=== PATIENT | male | born 1940 | race Hispanic/Latino ===

== ENCOUNTER 2017-08-25 13:48 | Inpatient (IN) | payer OTHER ==
[~2017-08-25] VITALS: Ht 170.2 cm; Wt 84.5 kg
[2017-08-25 15:33] LABS: BASOPHILS % (AUTO) 0.9 % (0.0-5.0); EOSINOPHILS % (AUTO) 1.6 % (0.0-8.0); HEMATOCRIT 28.2 % (42-54); LYMPHOCYTES % (AUTO) 8.3 % (21.0-51.0); MEAN CORPUSCULAR HEMOGLOBIN 29.5 pg (27.0-33.0); MEAN CORPUSCULAR HGB CONC 33.3 g/dL (32.0-36.0); MEAN CORPUSCULAR VOLUME 88.6 fL (79-99); MONOCYTES % (AUTO) 6.8 % (3.0-13.0); NEUTROPHILS % (AUTO) 82.4 % (40.0-77.0); PLATELET COUNT (AUTO) 210 K/uL (130-400); RED BLOOD CELL COUNT(AUTO) 3.19 MIL/uL (4.50-6.20); RED CELL DISTRIBUTION WIDTH 12.9 % (11.0-15.5); WHITE BLOOD COUNT (AUTO) 12.7 K/uL (4.8-10.8)
[2017-08-25 15:59] LABS: ALBUMIN 3.4 g/dL (3.5-5.0); BILIRUBIN,DIRECT 0.1 mg/dL (0.0-0.3); BILIRUBIN,TOTAL 0.4 mg/dL (0.2-1.0); POTASSIUM 3.8 mmol/L (3.5-5.1); TOTAL PROTEIN, SERUM 7.1 g/dL (6.0-8.3)
[2017-08-25 16:10] LABS: CREATININE 10.6 mg/dL (0.5-1.5)
[2017-08-25 21:27] VITALS: BP 172/76
[2017-08-25] MEDS ORDERED: SODIUM CHLORIDE 0.9% 10 ML VIAL IVP PRN (22:15)
[2017-08-25] MEDS ORDERED: METO100T14 PO ×2 (22:20→22:21)
[2017-08-25] MEDS ORDERED: CALC667T5 PO (22:22)
[2017-08-25] MEDS ORDERED: FURO40TA7 PO (22:23)
[2017-08-25] MEDS ORDERED: NIFE60TA71 PO (22:24)
[2017-08-25] MEDS ORDERED: PANT40TA25 PO (22:26)
[2017-08-25] MEDS ORDERED: ONDA4TAB9 PO (22:27)
[2017-08-25] MEDS ORDERED: METO2.5T2 PO (22:28)
[2017-08-26] VITALS (7 sets, daily range): BP systolic 143–170; BP diastolic 74–86
[2017-08-26] MEDS ORDERED: ONDANSETRON HCL 4 MG/2 ML VIAL IVP PRN (01:15)
[2017-08-26 04:25] LABS: HEMATOCRIT 27.8 % (42-54); MEAN CORPUSCULAR HEMOGLOBIN 30.9 pg (27.0-33.0); MEAN CORPUSCULAR HGB CONC 34.7 g/dL (32.0-36.0); MEAN CORPUSCULAR VOLUME 89.1 fL (79-99); PLATELET COUNT (AUTO) 203 K/uL (130-400); RED BLOOD CELL COUNT(AUTO) 3.12 MIL/uL (4.50-6.20); RED CELL DISTRIBUTION WIDTH 12.7 % (11.0-15.5); WHITE BLOOD COUNT (AUTO) 13.8 K/uL (4.8-10.8)
[2017-08-26 04:45] LABS: POTASSIUM 3.6 mmol/L (3.5-5.1)
[2017-08-26 04:52] LABS: CREATININE 10.8 mg/dL (0.5-1.5)
[2017-08-26] MEDS: FAMOTIDINE 20MG TAB 20 MG TAB PO SCH ×2 (09:00→19:50)
[2017-08-26] MEDS ORDERED: LACTULOSE 20 GM/30 ML UDCUP PO PRN (11:45)
[2017-08-26] MEDS ORDERED: ACETAMINOPHEN 325 MG TAB PO PRN (11:45)
[2017-08-27] VITALS (8 sets, daily range): BP systolic 127–173; BP diastolic 60–93
[2017-08-27 06:25] LABS: HEMATOCRIT 28.1 % (42-54); MEAN CORPUSCULAR HEMOGLOBIN 30.2 pg (27.0-33.0); MEAN CORPUSCULAR HGB CONC 34.3 g/dL (32.0-36.0); MEAN CORPUSCULAR VOLUME 88.1 fL (79-99); PLATELET COUNT (AUTO) 213 K/uL (130-400); RED BLOOD CELL COUNT(AUTO) 3.19 MIL/uL (4.50-6.20); WHITE BLOOD COUNT (AUTO) 11.3 K/uL (4.8-10.8)
[2017-08-27 06:38] LABS: POTASSIUM 3.4 mmol/L (3.5-5.1)
[2017-08-27 06:42] LABS: CREATININE 10.4 mg/dL (0.5-1.5)
[2017-08-27] MEDS: FAMOTIDINE 20MG TAB 20 MG TAB PO SCH ×2 (10:01→20:19)
[2017-08-27 12:09] LABS: HEPATITIS Bs ANTIGEN SCREEN P Negative (Negative)
[2017-08-27] MEDS: METOPROLOL TARTRATE 50 MG TAB PO SCH (16:29)
[2017-08-27] MEDS: CALCIUM ACETATE 667 MG CAPSULE PO SCH (20:19)
[2017-08-27] MEDS: ONDANSETRON 4 MG TABLET PO SCH (20:19)
[2017-08-28] VITALS (11 sets, daily range): BP systolic 138–162; BP diastolic 72–103
[2017-08-28 06:53] LABS: HEMATOCRIT 29.1 % (42-54); MEAN CORPUSCULAR HEMOGLOBIN 29.9 pg (27.0-33.0); MEAN CORPUSCULAR HGB CONC 33.8 g/dL (32.0-36.0); MEAN CORPUSCULAR VOLUME 88.5 fL (79-99); PLATELET COUNT (AUTO) 209 K/uL (130-400); RED BLOOD CELL COUNT(AUTO) 3.29 MIL/uL (4.50-6.20); RED CELL DISTRIBUTION WIDTH 12.7 % (11.0-15.5); WHITE BLOOD COUNT (AUTO) 11.4 K/uL (4.8-10.8)
[2017-08-28 07:10] LABS: POTASSIUM 3.3 mmol/L (3.5-5.1)
[2017-08-28 07:19] LABS: CREATININE 10.3 mg/dL (0.5-1.5)
[2017-08-28 08:33] LABS: INR 1.01 (0.85-1.15); PARTIAL THROMBOPLASTIN TIME 26.9 SEC (26.3-35.5); PROTHROMBIN TIME 10.6 SEC (9.6-11.6)
[2017-08-28] MEDS: METOPROLOL TARTRATE 50 MG TAB PO SCH ×3 (09:00→23:09)
[2017-08-28] MEDS: CALCIUM ACETATE 667 MG CAPSULE PO SCH ×3 (09:00→23:08)
[2017-08-28] MEDS: FAMOTIDINE 20MG TAB 20 MG TAB PO SCH ×2 (09:00→23:08)
[2017-08-28] MEDS: NIFEDIPINE ER 30 MG TAB PO SCH (09:00)
[2017-08-28] MEDS: FUROSEMIDE 40 MG TABLET PO SCH (09:00)
[2017-08-28] MEDS: ONDANSETRON 4 MG TABLET PO SCH ×3 (09:00→23:08)
[2017-08-28] MEDS: PANTOPRAZOLE SODIUM 40 MG TABLET.DR PO SCH (09:00)
[2017-08-28] MEDS: METOLAZONE 2.5 MG TABLET PO SCH (09:00)
[2017-08-28] MEDS ORDERED: SODIUM BICARB 50MEQ 50ML VIAL ONE (12:35)
[2017-08-28] MEDS ORDERED: LIDOCAINE HCL 2% 20ML ONE (12:35)
[2017-08-28] MEDS ORDERED: HEPARIN SODIUM 1000UNIT/ML 10ML VIAL ONE (12:36)
[2017-08-28] MEDS ORDERED: ADENOSINE 3 MG/ML 2ML VIAL IV ONE (13:38)
[2017-08-28 14:57] LABS: HEMATOCRIT 30.7 % (42-54)
[2017-08-28 15:12] LABS: HEMOGLOBIN A1C 5.9 % (4.0-6.0)
[2017-08-28 15:25] LABS: ALBUMIN 3.6 g/dL (3.5-5.0)
[2017-08-28 15:33] LABS: CREATININE 10.6 mg/dL (0.5-1.5)
[2017-08-28 15:42] LABS: % IRON SATURATION 21.8 % (30-44)
[2017-08-28] MEDS ORDERED: ALBUMIN (HUMAN) 25% 100 ML IV PRN (20:15)
[2017-08-28] MEDS ORDERED: 0.9% SODIUM CHLORIDE 250 ML IV BAG IV PRN (20:15)
[2017-08-28] MEDS: HEPARIN SODIUM 5000UNIT/ML 1ML VIAL IJ PRN (20:51)
[2017-08-28] MEDS: SODIUM CHLORIDE 0.9% 1000ML 1,000 ML IV PRN (20:51)
[2017-08-29] VITALS (7 sets, daily range): BP systolic 102–134; BP diastolic 58–86
[2017-08-29 00:03] LABS: CREATINE KINASE MB 2.3 ng/mL (0.5-3.6); TROPONIN I 0.06 ng/mL (0.00-0.06)
[2017-08-29 05:10] LABS: HEMATOCRIT 29.8 % (42-54); MEAN CORPUSCULAR HEMOGLOBIN 29.9 pg (27.0-33.0); MEAN CORPUSCULAR HGB CONC 33.9 g/dL (32.0-36.0); MEAN CORPUSCULAR VOLUME 88.4 fL (79-99); PLATELET COUNT (AUTO) 207 K/uL (130-400); RED BLOOD CELL COUNT(AUTO) 3.38 MIL/uL (4.50-6.20); RED CELL DISTRIBUTION WIDTH 12.8 % (11.0-15.5); WHITE BLOOD COUNT (AUTO) 14.2 K/uL (4.8-10.8)
[2017-08-29 05:44] LABS: CREATINE KINASE MB 2.2 ng/mL (0.5-3.6); POTASSIUM 3.6 mmol/L (3.5-5.1); THYROID STIMULATING HORMONE 1.48 uIU/mL (0.36-3.74); TROPONIN I 0.08 ng/mL (0.00-0.06)
[2017-08-29 05:48] LABS: CREATININE 8.5 mg/dL (0.5-1.5)
[2017-08-29] MEDS ORDERED: CEFTRIAXONE 1GM/D5W 50ML 50 ML IV SCH (08:30)
[2017-08-29] MEDS: HEPARIN SODIUM 5000UNIT/ML 1ML VIAL IJ PRN (13:02)
[2017-08-29] MEDS: PANTOPRAZOLE SODIUM 40 MG TABLET.DR PO SCH (13:04)
[2017-08-29] MEDS: NIFEDIPINE ER 30 MG TAB PO SCH (13:04)
[2017-08-29] MEDS: METOPROLOL TARTRATE 50 MG TAB PO SCH ×2 (13:05→16:35)
[2017-08-29] MEDS: FAMOTIDINE 20MG TAB 20 MG TAB PO SCH ×2 (13:05→21:27)
[2017-08-29] MEDS: FUROSEMIDE 40 MG TABLET PO SCH (13:06)
[2017-08-29] MEDS: CALCIUM ACETATE 667 MG CAPSULE PO SCH ×3 (13:06→21:27)
[2017-08-29] MEDS: CEFTRIAXONE SODIUM 1 GM IVP SCH (13:06)
[2017-08-29] MEDS: METOLAZONE 2.5 MG TABLET PO SCH (13:07)
[2017-08-29] MEDS: ONDANSETRON 4 MG TABLET PO SCH ×3 (13:07→21:27)
[2017-08-29 14:15] LABS: CREATINE KINASE MB 2.1 ng/mL (0.5-3.6); TROPONIN I 0.13 ng/mL (0.00-0.06)
[2017-08-30 04:00] VITALS: BP 121/66
[2017-08-30 06:10] LABS: ALBUMIN 3.1 g/dL (3.5-5.0); CREATININE 7.4 mg/dL (0.5-1.5); PHOSPHORUS 5.9 mg/dL (2.5-4.9); POTASSIUM 3.2 mmol/L (3.5-5.1)
[2017-08-30 08:00] VITALS: BP 114/70
[2017-08-30] MEDS ORDERED: APIXABAN 2.5 MG TABLET PO SCH (09:00)
[2017-08-30] MEDS: FAMOTIDINE 20MG TAB 20 MG TAB PO SCH ×2 (10:12→22:47)
[2017-08-30] MEDS: PANTOPRAZOLE SODIUM 40 MG TABLET.DR PO SCH (10:12)
[2017-08-30] MEDS: ONDANSETRON 4 MG TABLET PO SCH ×3 (10:12→22:47)
[2017-08-30] MEDS: CALCIUM ACETATE 667 MG CAPSULE PO SCH ×3 (10:13→22:48)
[2017-08-30] MEDS: FUROSEMIDE 40 MG TABLET PO SCH (10:13)
[2017-08-30] MEDS: METOLAZONE 2.5 MG TABLET PO SCH (10:14)
[2017-08-30] MEDS: METOPROLOL TARTRATE 50 MG TAB PO SCH ×2 (10:17→16:44)
[2017-08-30] MEDS: NIFEDIPINE ER 30 MG TAB PO SCH (10:17)
[2017-08-30] MEDS: CEFTRIAXONE SODIUM 1 GM IVP SCH (10:18)
[2017-08-30 11:43] VITALS: BP 128/63
[2017-08-30 16:00] VITALS: BP 120/65
[2017-08-30 20:00] VITALS: BP 111/71
[2017-08-30] MEDS: APIXABAN 5 MG TABLET PO SCH (22:47)
[2017-08-30 23:38] VITALS: BP 119/66
[2017-08-31] VITALS (13 sets, daily range): BP systolic 76–132; BP diastolic 43–81
[2017-08-31 04:49] LABS: HEMATOCRIT 28.9 % (42-54); MEAN CORPUSCULAR HGB CONC 33.5 g/dL (32.0-36.0); MEAN CORPUSCULAR VOLUME 89.4 fL (79-99); PLATELET COUNT (AUTO) 184 K/uL (130-400); RED BLOOD CELL COUNT(AUTO) 3.23 MIL/uL (4.50-6.20); RED CELL DISTRIBUTION WIDTH 12.7 % (11.0-15.5); WHITE BLOOD COUNT (AUTO) 13.6 K/uL (4.8-10.8)
[2017-08-31 05:05] LABS: POTASSIUM 3.2 mmol/L (3.5-5.1)
[2017-08-31 05:07] LABS: CREATININE 9.2 mg/dL (0.5-1.5)
[2017-08-31] MEDS: CALCIUM ACETATE 667 MG CAPSULE PO SCH ×3 (08:03→16:37)
[2017-08-31] MEDS: METOLAZONE 2.5 MG TABLET PO SCH (08:03)
[2017-08-31] MEDS: ONDANSETRON 4 MG TABLET PO SCH ×3 (08:04→21:41)
[2017-08-31] MEDS: FAMOTIDINE 20MG TAB 20 MG TAB PO SCH ×2 (08:04→21:41)
[2017-08-31] MEDS: APIXABAN 5 MG TABLET PO SCH ×2 (08:04→21:41)
[2017-08-31] MEDS: FUROSEMIDE 40 MG TABLET PO SCH (08:04)
[2017-08-31] MEDS: PANTOPRAZOLE SODIUM 40 MG TABLET.DR PO SCH (08:04)
[2017-08-31] MEDS: CEFTRIAXONE SODIUM 1 GM IVP SCH (08:06)
[2017-08-31] MEDS: NIFEDIPINE ER 30 MG TAB PO SCH (09:00)
[2017-08-31] MEDS: METOPROLOL TARTRATE 50 MG TAB PO SCH ×2 (09:00→16:32)
[2017-08-31] MEDS: HEPARIN SODIUM 5000UNIT/ML 1ML VIAL IJ PRN (15:47)
[2017-09-01 04:00] VITALS: BP 100/56
[2017-09-01 04:31] LABS: HEMATOCRIT 29.3 % (42-54); MEAN CORPUSCULAR HGB CONC 33.6 g/dL (32.0-36.0); MEAN CORPUSCULAR VOLUME 89.1 fL (79-99); PLATELET COUNT (AUTO) 179 K/uL (130-400); RED BLOOD CELL COUNT(AUTO) 3.29 MIL/uL (4.50-6.20); RED CELL DISTRIBUTION WIDTH 12.7 % (11.0-15.5); WHITE BLOOD COUNT (AUTO) 15.6 K/uL (4.8-10.8)
[2017-09-01 04:53] LABS: CREATININE 7.4 mg/dL (0.5-1.5); POTASSIUM 3.5 mmol/L (3.5-5.1)
[2017-09-01 07:00] VITALS: BP 119/71
[2017-09-01] MEDS ORDERED: CEFEPIME 1GM+NS 50ML 50 ML IV SCH (09:00)
[2017-09-01] MEDS ORDERED: WATER FOR INJECTION,STERILE 5 ML VIAL ONE ×2 (09:28→11:59)
[2017-09-01] MEDS: CEFTRIAXONE SODIUM 1 GM IVP SCH (09:38)
[2017-09-01] MEDS: METOLAZONE 2.5 MG TABLET PO SCH (09:39)
[2017-09-01] MEDS: ONDANSETRON 4 MG TABLET PO SCH ×3 (09:39→20:47)
[2017-09-01] MEDS: PANTOPRAZOLE SODIUM 40 MG TABLET.DR PO SCH (09:39)
[2017-09-01] MEDS: FUROSEMIDE 40 MG TABLET PO SCH (09:39)
[2017-09-01] MEDS: FAMOTIDINE 20MG TAB 20 MG TAB PO SCH ×2 (09:39→20:47)
[2017-09-01] MEDS: APIXABAN 5 MG TABLET PO SCH ×2 (09:40→20:47)
[2017-09-01] MEDS: NIFEDIPINE ER 30 MG TAB PO SCH (09:40)
[2017-09-01] MEDS: CALCIUM ACETATE 667 MG CAPSULE PO SCH ×3 (09:40→16:32)
[2017-09-01] MEDS: METOPROLOL TARTRATE 50 MG TAB PO SCH ×2 (09:40→16:40)
[2017-09-01] MEDS ORDERED: COMPOUND IV REFRIGERATED 1 EACH IVSOLN MISC PRN (10:00)
[2017-09-01] MEDS ORDERED: VANCOMYCIN PROTOCOL PER PHARMACY IV SCH (10:00)
[2017-09-01] MEDS ORDERED: VANCOMYCIN 1.25 GM in SODIUM CHLORIDE 0.9% 250 ML IV SCH (10:00)
[2017-09-01 11:00] VITALS: BP 123/74
[2017-09-01] MEDS: CEFEPIME HCL 1 GM VIAL IVP SCH (12:17)
[2017-09-01 16:01] VITALS: BP 121/68
[2017-09-01 20:00] VITALS: BP 124/66
[2017-09-02] VITALS: BP 121/69
[2017-09-02 04:00] VITALS: BP 108/62
[2017-09-02 04:15] LABS: HEMATOCRIT 27.3 % (42-54); MEAN CORPUSCULAR HGB CONC 33.8 g/dL (32.0-36.0); MEAN CORPUSCULAR VOLUME 88.8 fL (79-99); PLATELET COUNT (AUTO) 174 K/uL (130-400); RED BLOOD CELL COUNT(AUTO) 3.08 MIL/uL (4.50-6.20); RED CELL DISTRIBUTION WIDTH 12.6 % (11.0-15.5); WHITE BLOOD COUNT (AUTO) 14.1 K/uL (4.8-10.8)
[2017-09-02 04:33] LABS: ALBUMIN 2.8 g/dL (3.5-5.0); BILIRUBIN,TOTAL 0.3 mg/dL (0.2-1.0); POTASSIUM 3.4 mmol/L (3.5-5.1); TOTAL PROTEIN, SERUM 6.2 g/dL (6.0-8.3)
[2017-09-02 05:06] LABS: CREATININE 9.5 mg/dL (0.5-1.5)
[2017-09-02 07:00] VITALS: BP 129/77
[2017-09-02] MEDS: SODIUM CHLORIDE 0.9% 1000ML 1,000 ML IV PRN (08:41)
[2017-09-02] MEDS: HEPARIN SODIUM 5000UNIT/ML 1ML VIAL IJ PRN (08:42)
[2017-09-02] MEDS: APIXABAN 5 MG TABLET PO SCH ×2 (10:47→20:29)
[2017-09-02] MEDS: METOLAZONE 2.5 MG TABLET PO SCH (10:47)
[2017-09-02] MEDS: METOPROLOL TARTRATE 50 MG TAB PO SCH ×2 (10:48→17:28)
[2017-09-02] MEDS: FUROSEMIDE 40 MG TABLET PO SCH (10:49)
[2017-09-02] MEDS: CALCIUM ACETATE 667 MG CAPSULE PO SCH ×3 (10:50→17:28)
[2017-09-02] MEDS: FAMOTIDINE 20MG TAB 20 MG TAB PO SCH ×2 (10:50→20:29)
[2017-09-02] MEDS: PANTOPRAZOLE SODIUM 40 MG TABLET.DR PO SCH (10:50)
[2017-09-02] MEDS: NIFEDIPINE ER 30 MG TAB PO SCH (10:50)
[2017-09-02] MEDS: ONDANSETRON 4 MG TABLET PO SCH ×3 (10:50→20:29)
[2017-09-02] MEDS ORDERED: WATER FOR INJECTION,STERILE 20 ML VIAL ONE (10:56)
[2017-09-02 11:00] VITALS: BP 127/69
[2017-09-02] MEDS: CEFEPIME HCL 1 GM VIAL IVP SCH (11:18)
[2017-09-02 16:00] VITALS: BP 100/62
[2017-09-02 20:00] VITALS: BP 104/62
[2017-09-03] VITALS (7 sets, daily range): BP systolic 106–127; BP diastolic 63–74
[2017-09-03] MEDS: CALCIUM ACETATE 667 MG CAPSULE PO SCH ×3 (06:55→18:18)
[2017-09-03] MEDS ORDERED: WATER FOR INJECTION,STERILE 20 ML VIAL ONE (10:23)
[2017-09-03] MEDS: NIFEDIPINE ER 30 MG TAB PO SCH (10:27)
[2017-09-03] MEDS: APIXABAN 5 MG TABLET PO SCH ×2 (10:28→21:40)
[2017-09-03] MEDS: FUROSEMIDE 40 MG TABLET PO SCH (10:29)
[2017-09-03] MEDS: METOLAZONE 2.5 MG TABLET PO SCH (10:29)
[2017-09-03] MEDS: FAMOTIDINE 20MG TAB 20 MG TAB PO SCH ×2 (10:29→21:40)
[2017-09-03] MEDS: METOPROLOL TARTRATE 50 MG TAB PO SCH ×2 (10:29→18:17)
[2017-09-03] MEDS: PANTOPRAZOLE SODIUM 40 MG TABLET.DR PO SCH (10:29)
[2017-09-03] MEDS: DOCUSATE SODIUM 100 MG CAP PO PRN ×2 (10:30→21:40)
[2017-09-03] MEDS: ONDANSETRON 4 MG TABLET PO SCH ×3 (10:30→21:40)
[2017-09-03] MEDS: CEFEPIME HCL 1 GM VIAL IVP SCH (10:30)
[2017-09-04] VITALS (11 sets, daily range): BP systolic 93–126; BP diastolic 57–74
[2017-09-04 05:05] LABS: HEMATOCRIT 28.4 % (42-54); MEAN CORPUSCULAR HEMOGLOBIN 30.1 pg (27.0-33.0); MEAN CORPUSCULAR HGB CONC 33.6 g/dL (32.0-36.0); MEAN CORPUSCULAR VOLUME 89.4 fL (79-99); PLATELET COUNT (AUTO) 179 K/uL (130-400); RED BLOOD CELL COUNT(AUTO) 3.18 MIL/uL (4.50-6.20); RED CELL DISTRIBUTION WIDTH 12.7 % (11.0-15.5); WHITE BLOOD COUNT (AUTO) 17.1 K/uL (4.8-10.8)
[2017-09-04 05:17] LABS: ALBUMIN 2.9 g/dL (3.5-5.0); BILIRUBIN,TOTAL 0.4 mg/dL (0.2-1.0); POTASSIUM 3.5 mmol/L (3.5-5.1); TOTAL PROTEIN, SERUM 6.4 g/dL (6.0-8.3)
[2017-09-04 05:20] LABS: CREATININE 9.4 mg/dL (0.5-1.5)
[2017-09-04] MEDS: CALCIUM ACETATE 667 MG CAPSULE PO SCH ×3 (07:25→18:04)
[2017-09-04] MEDS: FAMOTIDINE 20MG TAB 20 MG TAB PO SCH ×2 (08:38→20:47)
[2017-09-04] MEDS: METOLAZONE 2.5 MG TABLET PO SCH (08:38)
[2017-09-04] MEDS: APIXABAN 5 MG TABLET PO SCH ×2 (08:38→20:47)
[2017-09-04] MEDS: FUROSEMIDE 40 MG TABLET PO SCH (08:38)
[2017-09-04] MEDS: METOPROLOL TARTRATE 50 MG TAB PO SCH ×2 (08:39→18:04)
[2017-09-04] MEDS: PANTOPRAZOLE SODIUM 40 MG TABLET.DR PO SCH (08:39)
[2017-09-04] MEDS: NIFEDIPINE ER 30 MG TAB PO SCH (08:39)
[2017-09-04] MEDS: ONDANSETRON 4 MG TABLET PO SCH ×3 (08:39→20:47)
[2017-09-04] MEDS ORDERED: WATER FOR INJECTION,STERILE 20 ML VIAL ONE (11:14)
[2017-09-04] MEDS: CEFEPIME HCL 1 GM VIAL IVP SCH (11:32)
[2017-09-05] VITALS (7 sets, daily range): BP systolic 77–124; BP diastolic 46–66
[2017-09-05 05:29] LABS: HEMATOCRIT 26.9 % (42-54); MEAN CORPUSCULAR HEMOGLOBIN 31.6 pg (27.0-33.0); MEAN CORPUSCULAR HGB CONC 35.5 g/dL (32.0-36.0); MEAN CORPUSCULAR VOLUME 88.9 fL (79-99); PLATELET COUNT (AUTO) 174 K/uL (130-400); RED BLOOD CELL COUNT(AUTO) 3.03 MIL/uL (4.50-6.20); RED CELL DISTRIBUTION WIDTH 12.8 % (11.0-15.5); WHITE BLOOD COUNT (AUTO) 13.2 K/uL (4.8-10.8)
[2017-09-05 05:37] LABS: BAND NEUTROPHILS % (MANUAL) 2 % (0-2); BASOPHILS % (MANUAL) 2 % (0-2); EOSINOPHILS % (MANUAL) 6 % (1-6); LYMPHOCYTES % (MANUAL) 11 % (22-44); MAN.DIFF COMMENT-IMPRESSION MANUAL DIFFERENTIAL; MONOCYTES % (MANUAL) 8 % (2-9); PLATELET MORPHOLOGY COMMENT ADEQUATE; SEGMENTED NEUTROPHILS % 71 % (40-70)
[2017-09-05] MEDS: NIFEDIPINE ER 30 MG TAB PO SCH (08:07)
[2017-09-05] MEDS: METOPROLOL TARTRATE 50 MG TAB PO SCH ×2 (08:08→17:00)
[2017-09-05] MEDS: CALCIUM ACETATE 667 MG CAPSULE PO SCH ×3 (08:14→17:00)
[2017-09-05] MEDS: HEPARIN SODIUM 5000UNIT/ML 1ML VIAL IJ PRN (15:54)
[2017-09-05] MEDS: CEFEPIME HCL 1 GM VIAL IVP SCH (18:19)
[2017-09-05] MEDS: FAMOTIDINE 20MG TAB 20 MG TAB PO SCH ×2 (18:20→20:53)
[2017-09-05] MEDS: METOLAZONE 2.5 MG TABLET PO SCH (18:20)
[2017-09-05] MEDS: ONDANSETRON 4 MG TABLET PO SCH ×2 (18:20→21:00)
[2017-09-05] MEDS: PANTOPRAZOLE SODIUM 40 MG TABLET.DR PO SCH (18:20)
[2017-09-05] MEDS: FUROSEMIDE 40 MG TABLET PO SCH (18:20)
[2017-09-05] MEDS: APIXABAN 5 MG TABLET PO SCH ×2 (18:20→21:00)
[2017-09-06 04:17] VITALS: BP 115/52
[2017-09-06 07:00] VITALS: BP_SYST 103; BP_SYST 74; BP_SYST 94; BP_DIAS 49; BP_DIAS 56; BP_DIAS 66
[2017-09-06] MEDS ORDERED: FUROSEMIDE 40 MG TABLET PO SCH (09:00)
[2017-09-06] MEDS: CALCIUM ACETATE 667 MG CAPSULE PO SCH ×2 (09:17→12:05)
[2017-09-06] MEDS: APIXABAN 5 MG TABLET PO SCH (09:18)
[2017-09-06] MEDS: FAMOTIDINE 20MG TAB 20 MG TAB PO SCH (09:18)
[2017-09-06] MEDS: ONDANSETRON 4 MG TABLET PO SCH ×2 (09:18→14:02)
[2017-09-06] MEDS: PANTOPRAZOLE SODIUM 40 MG TABLET.DR PO SCH (09:18)
[2017-09-06] MEDS: METOPROLOL TARTRATE 50 MG TAB PO SCH (09:18)
[2017-09-06 10:54] LABS: HEMATOCRIT 28.6 % (42-54); MEAN CORPUSCULAR HEMOGLOBIN 30.7 pg (27.0-33.0); MEAN CORPUSCULAR HGB CONC 34.1 g/dL (32.0-36.0); MEAN CORPUSCULAR VOLUME 89.9 fL (79-99); PLATELET COUNT (AUTO) 195 K/uL (130-400); RED BLOOD CELL COUNT(AUTO) 3.18 MIL/uL (4.50-6.20); WHITE BLOOD COUNT (AUTO) 11.9 K/uL (4.8-10.8)
[2017-09-06] MEDS: CEFEPIME HCL 1 GM VIAL IVP SCH (14:03)
[2017-12-06] MEDS ORDERED: MIDO10TA PO (10:18)
[2017-12-06] MEDS ORDERED: DRON400T2 PO (10:18)
[2017-12-06] MEDS ORDERED: FLUT50DI2 IH (10:18)
== END 2017-09-06 18:15 | DRG 871 ==
LOC: EDH 13:48 → OBSVTOIN 13:49 → EDHIP 13:49 → 3DH 21:32
PROVIDERS: ADMIT Internal Medicine; ATTEND Internal Medicine
PROC: 02H633Z Insertion of Infusion Device into Right Atrium, Percutaneous Approach (ICD-10-PCS; principal; 2017-08-28)
PROC: 5A1D70Z Performance of Urinary Filtration, Intermittent, Less than 6 Hours Per Day (ICD-10-PCS; 2017-08-28)
PROC: 5A1D70Z Performance of Urinary Filtration, Intermittent, Less than 6 Hours Per Day (ICD-10-PCS; 2017-08-29)
PROC: 5A1D70Z Performance of Urinary Filtration, Intermittent, Less than 6 Hours Per Day (ICD-10-PCS; 2017-09-02)
PROC: 5A1D70Z Performance of Urinary Filtration, Intermittent, Less than 6 Hours Per Day (ICD-10-PCS; 2017-09-05)
DX: A41.9 Sepsis, unspecified organism (principal); N18.6 End stage renal disease; E11.22 Type 2 diabetes mellitus with diabetic chronic kidney disease; E87.70 Fluid overload, unspecified; I12.0 Hypertensive chronic kidney disease with stage 5 chronic kidney disease or end stage renal disease; I48.91 Unspecified atrial fibrillation; I47.1 Supraventricular tachycardia; I27.20 Pulmonary hypertension, unspecified; Z99.2 Dependence on renal dialysis; M10.9 Gout, unspecified; E66.9 Obesity, unspecified; D63.1 Anemia in chronic kidney disease; E78.5 Hyperlipidemia, unspecified; I95.1 Orthostatic hypotension; J32.3 Chronic sphenoidal sinusitis; Z72.0 Tobacco use; Z79.01 Long term (current) use of anticoagulants; Z87.441 Personal history of nephrotic syndrome; Z68.29 Body mass index [BMI] 29.0-29.9, adult
CPT/HCPCS: 36415; 36558; 70450; 71045; 71046; 77001; 80048; 80053; 80061; 80069; 80076; 82040; 82550; 82553; 82565; 82607; 82728; 82746; 82948; 83036; 83540; 83550; 83874; 84443; 84484; 84520; 85025; 85027; 85610; 85730; 86701; 86704; 86706; 86708; 87040; 87088; 87340; 87390; 87520; 88313; 90935; 93005; 93306; A4218; C1750; J0153; J0692; J0696; J1644; J2405; J3370; J3490; J7030; Q0162

== ENCOUNTER 2017-09-16 11:08 | Inpatient (IN) | payer OTHER ==
[~2017-09-16] VITALS: Ht 170.2 cm; Wt 84.1 kg
[~2017-09-16 11:08] MED LIST: CALC667T5 PO; FURO40TA7 PO; METO100T14 PO; METO2.5T2 PO; NIFE60TA71 PO; ONDA4TAB9 PO; PANT40TA25 PO
[2017-09-16 11:28] LABS: EOSINOPHILS % (AUTO) 4.1 % (0.0-8.0); HEMATOCRIT 31.7 % (42-54); LYMPHOCYTES % (AUTO) 15.6 % (21.0-51.0); MEAN CORPUSCULAR HEMOGLOBIN 30.9 pg (27.0-33.0); MEAN CORPUSCULAR HGB CONC 34.2 g/dL (32.0-36.0); MEAN CORPUSCULAR VOLUME 90.5 fL (79-99); MONOCYTES % (AUTO) 12.5 % (3.0-13.0); NEUTROPHILS % (AUTO) 66.8 % (40.0-77.0); PLATELET COUNT (AUTO) 213 K/uL (130-400); RED CELL DISTRIBUTION WIDTH 13.6 % (11.0-15.5); WHITE BLOOD COUNT (AUTO) 11.9 K/uL (4.8-10.8)
[2017-09-16 11:38] LABS: POTASSIUM 4.4 mmol/L (3.5-5.1)
[2017-09-16 11:41] LABS: CREATININE 6.7 mg/dL (0.5-1.5)
[2017-09-16 11:53] LABS: ALBUMIN 3.2 g/dL (3.5-5.0); BILIRUBIN,TOTAL 0.4 mg/dL (0.2-1.0); CREATINE KINASE MB 2.9 ng/mL (0.5-3.6); TOTAL PROTEIN, SERUM 7.3 g/dL (6.0-8.3)
[2017-09-16] MEDS ORDERED: SODIUM CHLORIDE 0.9% 1000ML 1,000 ML IV ONE (15:24)
[2017-09-16] MEDS ORDERED: ONDANSETRON ODT 4 MG TAB PO PRN (18:15)
[2017-09-16 18:41] LABS: CREATINE KINASE MB 2.9 ng/mL (0.5-3.6); TROPONIN I 0.1 ng/mL (0.00-0.06)
[2017-09-16 19:15] VITALS: BP 140/67
[2017-09-16] MEDS ORDERED: FAMOTIDINE 20MG TAB 20 MG TAB PO SCH (21:00)
[2017-09-16] MEDS: METOPROLOL TARTRATE 50 MG TAB PO SCH (21:00)
[2017-09-16] MEDS: APIXABAN 5 MG TABLET PO SCH (21:00)
[2017-09-16] MEDS ORDERED: FUROSEMIDE 40 MG TABLET PO SCH (21:00)
[2017-09-16 21:15] VITALS: BP 140/67
[2017-09-16] MEDS ORDERED: PHARMACY COMMUNICATION MISC SCH (22:30)
[2017-09-17] VITALS (7 sets, daily range): BP systolic 103–151; BP diastolic 50–78
[2017-09-17 00:53] LABS: TROPONIN I 0.12 ng/mL (0.00-0.06)
[2017-09-17] MEDS ORDERED: METOPROLOL TARTRATE 50 MG TAB PO SCH (09:00)
[2017-09-17] MEDS ORDERED: FUROSEMIDE 20 MG TABLET PO SCH ×2 (09:00)
[2017-09-17] MEDS: CALCIUM ACETATE 667 MG CAPSULE PO SCH ×3 (09:09→16:18)
[2017-09-17] MEDS: PANTOPRAZOLE SODIUM 40 MG TABLET.DR PO SCH (09:10)
[2017-09-17] MEDS: APIXABAN 5 MG TABLET PO SCH ×2 (09:10→20:13)
[2017-09-17] MEDS: METOPROLOL TARTRATE 50 MG TAB PO SCH (20:13)
[2017-09-18] VITALS (7 sets, daily range): BP systolic 105–139; BP diastolic 59–76
[2017-09-18 05:40] LABS: HEMATOCRIT 26.1 % (42-54); MEAN CORPUSCULAR HEMOGLOBIN 31.6 pg (27.0-33.0); MEAN CORPUSCULAR HGB CONC 35.1 g/dL (32.0-36.0); PLATELET COUNT (AUTO) 185 K/uL (130-400); RED CELL DISTRIBUTION WIDTH 13.2 % (11.0-15.5); WHITE BLOOD COUNT (AUTO) 8.8 K/uL (4.8-10.8)
[2017-09-18 05:59] LABS: CREATININE 10.8 mg/dL (0.5-1.5)
[2017-09-18] MEDS: CALCIUM ACETATE 667 MG CAPSULE PO SCH ×3 (08:28→16:53)
[2017-09-18] MEDS: APIXABAN 5 MG TABLET PO SCH ×2 (08:28→19:32)
[2017-09-18] MEDS: PANTOPRAZOLE SODIUM 40 MG TABLET.DR PO SCH (08:28)
[2017-09-18] MEDS: METOPROLOL TARTRATE 50 MG TAB PO SCH ×2 (08:29→19:32)
[2017-09-18] MEDS ORDERED: SODIUM CHLORIDE 0.9% 1000ML 1,000 ML IV ONE (11:22)
[2017-09-18] MEDS ORDERED: HEPARIN SODIUM 5000UNIT/ML 1ML VIAL ONE (11:22)
[2017-09-18] MEDS ORDERED: SODIUM CHLORIDE 0.9% 1000ML 1,000 ML IV PRN (12:45)
[2017-09-18] MEDS ORDERED: ALBUMIN (HUMAN) 25% 100 ML IV PRN (12:45)
[2017-09-18] MEDS ORDERED: HEPARIN SODIUM 5000UNIT/ML 1ML VIAL IJ PRN ×2 (12:45)
[2017-09-18] MEDS ORDERED: 0.9% SODIUM CHLORIDE 250 ML IV BAG IV PRN (12:45)
[2017-09-18] MEDS ORDERED: EPOETIN ALFA 2,000 UNIT/ML VIAL SQ NR (12:45)
[2017-09-19 04:00] VITALS: BP 119/65
[2017-09-19 05:43] LABS: HEMATOCRIT 30.5 % (42-54); MEAN CORPUSCULAR HEMOGLOBIN 31.7 pg (27.0-33.0); MEAN CORPUSCULAR VOLUME 90.5 fL (79-99); PLATELET COUNT (AUTO) 226 K/uL (130-400); RED BLOOD CELL COUNT(AUTO) 3.37 MIL/uL (4.50-6.20); RED CELL DISTRIBUTION WIDTH 13.6 % (11.0-15.5); WHITE BLOOD COUNT (AUTO) 9.9 K/uL (4.8-10.8)
[2017-09-19 05:59] LABS: POTASSIUM 4.1 mmol/L (3.5-5.1)
[2017-09-19 06:07] LABS: CREATININE 8.2 mg/dL (0.5-1.5)
[2017-09-19] MEDS: APIXABAN 5 MG TABLET PO SCH (08:04)
[2017-09-19] MEDS: METOPROLOL TARTRATE 50 MG TAB PO SCH (08:04)
[2017-09-19] MEDS: PANTOPRAZOLE SODIUM 40 MG TABLET.DR PO SCH (08:04)
[2017-09-19] MEDS: CALCIUM ACETATE 667 MG CAPSULE PO SCH ×2 (08:04→12:04)
[2017-09-19 08:25] VITALS: BP 119/67
[2017-09-19 12:26] VITALS: BP 110/56
[2017-09-19 16:36] VITALS: BP 119/68
[2017-12-06] MEDS ORDERED: FLUT50DI2 IH (10:18)
[2017-12-06] MEDS ORDERED: DRON400T2 PO (10:18)
[2017-12-06] MEDS ORDERED: MIDO10TA PO (10:18)
== END 2017-09-19 18:48 | disposition home or self-care (01) | DRG 308 ==
LOC: EDH 11:08 → EDHIP 16:20 → 4AH 21:15
PROVIDERS: ADMIT Internal Medicine; ATTEND Internal Medicine
PROC: 5A1D70Z Performance of Urinary Filtration, Intermittent, Less than 6 Hours Per Day (ICD-10-PCS; principal; 2017-09-18)
DX: I49.8 Other specified cardiac arrhythmias (principal); N18.6 End stage renal disease; E11.22 Type 2 diabetes mellitus with diabetic chronic kidney disease; I12.0 Hypertensive chronic kidney disease with stage 5 chronic kidney disease or end stage renal disease; R55 Syncope and collapse; I48.92 Unspecified atrial flutter; I48.91 Unspecified atrial fibrillation; I47.1 Supraventricular tachycardia; D63.1 Anemia in chronic kidney disease; E78.5 Hyperlipidemia, unspecified; D72.829 Elevated white blood cell count, unspecified; I25.2 Old myocardial infarction; M10.9 Gout, unspecified; Z86.73 Personal history of transient ischemic attack (TIA), and cerebral infarction without residual deficits; Z87.441 Personal history of nephrotic syndrome; Z99.2 Dependence on renal dialysis
CPT/HCPCS: 36415; 70450; 71046; 80048; 80053; 82550; 82553; 83874; 84484; 85025; 85027; 90935; 93005; 93306; J0885; J1644; J7030

== ENCOUNTER 2017-12-07 08:57 | Day surgery (SDC) | payer OTHER ==
[~2017-12-07] VITALS: Ht 170.2 cm; Wt 80.4 kg
[~2017-12-07 08:57] MED LIST changes: -CALC667T5 PO; +DRON400T2 PO; +FLUT50DI2 IH; -FURO40TA7 PO; -METO100T14 PO; -METO2.5T2 PO; +MIDO10TA PO; -NIFE60TA71 PO; -ONDA4TAB9 PO; -PANT40TA25 PO; +SODIUM CHLORIDE 0.9% 1000ML 1,000 ML IV ONE
[2017-12-07 10:26] VITALS: BP 139/80
[2017-12-07] MEDS ORDERED: PROPOFOL 10 MG/ML 20ML VIAL IV ONE ×2 (11:49)
[2017-12-07 11:59] VITALS: BP 104/55
== END 2017-12-07 12:45 ==
LOC: DAH 08:57 → ENDO 08:57
PROVIDERS: ATTEND Internal Medicine Gastroenterology
DX: K92.1 Melena (principal); Z68.36 Body mass index [BMI] 36.0-36.9, adult; I48.91 Unspecified atrial fibrillation; I12.0 Hypertensive chronic kidney disease with stage 5 chronic kidney disease or end stage renal disease; N18.6 End stage renal disease; Z99.2 Dependence on renal dialysis; Z79.899 Other long term (current) drug therapy; Z79.84 Long term (current) use of oral hypoglycemic drugs
CPT/HCPCS: 36415; 43235; 84132; 93005; J2704 ×2; J7030

== ENCOUNTER → 2018-01-18 | Outpatient (CLI) | payer OTHER ==
[~2018-01-18] MED LIST changes: -SODIUM CHLORIDE 0.9% 1000ML 1,000 ML IV ONE
== END | disposition home or self-care (01) ==
LOC: OIH 12:44
PROVIDERS: ATTEND Internal Medicine Cardiovascular Disease
DX: Z13.6 Encounter for screening for cardiovascular disorders (principal)
CPT/HCPCS: 75571